=== PATIENT | female | born 1950 | race Caucasian/White ===

== ENCOUNTER 2016-11-16 08:07 | Outpatient (CLI) | payer MEDICARE, BC | END 2016-11-16 08:08 | disposition home or self-care (01) | DX: N20.0 Calculus of kidney (principal); R10.30 Lower abdominal pain, unspecified; R31.9 Hematuria, unspecified; Z87.442 Personal history of urinary calculi ==

== ENCOUNTER 2017-03-27 07:39 | Outpatient (CLI) | payer MEDICARE, BC ==
--- NOTE | 2017-03-27 16:26 | CT Report ---
EXAM: CT ABDOMEN AND PELVIS (CT KUB) EXAM DATE: 03/27/2017 08:03 AM. CLINICAL HISTORY: Renal stone follow-up. COMPARISONS: 11/16/2016. TECHNIQUE: Routine axial helical CT imaging was performed through the abdomen and pelvis without IV c ontrast. Reconstructions: Coronal and sagittal. In accordance with CT protocol optimization, one or more of the following dose reduction techniques w ere utilized for this exam: automated exposure control, adjustment of mA and/or KV based on patient s ize, or use of iterative reconstructive technique. FINDINGS: Lung Bases: Unremarkable. Right Kidney/Ureter: The 4 mm right lower pole intrarenal stone is no longer identified in that locat ion. There the stone appears to have descended into the distal right ureter stent present approximate ly 1 cm from the UVJ best seen on image 117. There is a tiny barely visualized intrarenal stone measu ring 1 mm in the right mid to upper pole as seen on image 49, slightly increased in visibility compar ed to last exam. No hydroureter or hydronephrosis. No perinephric edema. Left Kidney/Ureter: No stones, hydronephrosis, or hydroureter. No perinephric fat stranding. Other Solid Organs: A hypodense focus in the inferior right hepatic lobe measures 10 mm as before. Th e spleen, pancreas and adrenal glands are unremarkable. Gallbladder/Bile Ducts: Unremarkable. Peritoneal Cavity: Surgical material is present about the cecum as before suggesting prior appendecto my. The appendix is not visualized. No bowel obstruction or acute inflammatory process. Hernia repair mesh is intact in the subumbilical location. No free fluid or adenopathy. Pelvic Organs: The bladder is decompressed. The uterus, adnexal regions and rectum are unremarkable. Vasculature: Unremarkable. Other: None. IMPRESSION: 1. Interval descent of a 4 mm right lower pole stone into distal ureter just proximal to the right UV J but causing no hydroureter or hydronephrosis. 2. Slight interval enlargement of 1 mm right mid to upper pole intrarenal stone. [facility] Referring Provider Line: [phone] SITE ID: [id number]
== END 2017-03-27 07:40 | disposition home or self-care (01) ==
LOC: DI 07:39
PROVIDERS: ATTEND Student in an Organized Health Care Education/Training Program
DX: N20.0 Calculus of kidney (principal)
CPT/HCPCS: 74176

== ENCOUNTER 2017-03-28 22:52 | Emergency (ER) | payer MEDICARE, BC ==
[2017-03-28 23:22] LABS: BILIRUBIN,URINE NEGATIVE (NEGATIVE)
[2017-03-28 23:23] LABS: UA w/ MICROSCOPIC CHARGE YES
[2017-03-28 23:31] LABS: UR CULTURE IF IND NOT INDICATED; WBC,URINE 0-3 /HPF (0-5)
[2017-03-29] MEDS ORDERED: SODIUM CHLORIDE 0.9% 1,000 ML IV ONE (00:41)
[2017-03-29] MEDS ORDERED: HYDROmorphone 1 MG/ML SYRINGE IVP STA (00:41)
[2017-03-29] MEDS ORDERED: ONDANSETRON 4 MG/2 ML VIAL IVP STA (00:41)
[2017-03-29] MEDS ORDERED: HYDROmorphone 1 MG/ML SYRINGE ONE (00:43)
[2017-03-29] MEDS ORDERED: ONDANSETRON 4 MG/2 ML VIAL ONE (00:44)
--- NOTE | 2017-03-29 02:20 | ED Physician Documentation ---
PD HPI ABD PAIN - Stated complaint Stated Complaint: BLADDER PRESSURE,RT FLANK PAIN - Chief complaint Chief Complaint: Abd Pain - History obtained from History obtained from: Patient - History of Present Illness Timing - onset: How many days ago (16) Timing - details: Still present Quality: Sharp Location: Other (right flank) Associated symptoms: No: Fever, Vomiting Similar symptoms before: Diagnosis (History of similar symptoms with kidney stones.) Recently seen: Other (She underwent CT abdomen and pelvis yesterday.) - Additional information Additional information: The patient is a 67-year-old female who has history of kidney stones, who presents with right flank pain radiating to the right groin, and associated "bladder pressure." Her symptoms started 16 days ago, and she presents now because of increased pain. She underwent a CT KUB yesterday, and review of the radiologist's report reveals a 4 mm right distal ureteral stone, which on previous CT scan had been in the right renal pelvis. The patient denies fever or vomiting today. She denies dysuria. Review of Systems Constitutional: denies: Fever Nose: denies: Congestion Cardiac: denies: Chest pain / pressure Respiratory: denies: Dyspnea GI: reports: Abdominal Pain, Nausea. 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 - Present Medications Home Medications: Ambulatory Orders Medication Instructions Recorded Confirmed metFORMIN [Glucophage] 850 mg PO BID 04/23/14 03/28/17 Simvastatin 20 mg PO DAILY 03/28/17 03/28/17 oxyCODONE/ACET 5/325 [Percocet 5 1 each PO PRN PRN 03/28/17 03/28/17 mg/325 mg] Promethazine [Phenergan] 25 - 50 mg PO Q6H PRN #10 tab 03/29/17 - Allergies Allergies/Adverse Reactions: Allergies Allergy/AdvReac Type Severity Reaction Status Date / Time No Known Drug Allergies Allergy Verified 04/23/14 18:54 - Social History Does the pt smoke?: No Smoking Status: Never smoker Does the pt drink ETOH?: No Does the pt have substance abuse?: No PD ED PE NORMAL - Vitals Vital signs reviewed: Yes (hypertensive) - General General: Alert and oriented X 3, Well developed/nourished - HEENT HEENT: Atraumatic, Pharynx benign - Neck Neck: No adenopathy, No JVD - Cardiac Cardiac: RRR, No murmur - Respiratory Respiratory: No respiratory distress, Clear bilaterally - Abdomen Abdomen: Soft, Non tender - Back Back: Other (Right CVA tenderness to percussion.) - Derm Derm: No rash - Extremities Extremities: No edema, No calf tenderness / cord - Neuro Neuro: Alert and oriented X 3, No motor deficit, Normal speech Results - Vitals Vitals: Oxygen O2 Source Room air - Labs Labs: Laboratory Tests 03/28/17 23:15 Urine Color YELLOW Urine Clarity CLEAR Urine pH 6.0 Ur Specific Bard 1.025 Urine Protein NEGATIVE Urine Glucose (UA) NEGATIVE Urine Ketones TRACE Urine Occult Blood LARGE H Urine Nitrite NEGATIVE Urine Bilirubin NEGATIVE Urine Urobilinogen 0.2 (NORMAL) Ur Leukocyte Esterase NEGATIVE Urine RBC TNTC H Urine WBC 0-3 Ur Squamous Epith Cells RARE Squamous Urine Bacteria None Seen Urine Mucus Few Strands Ur Microscopic Review INDICATED Urine Culture Comments NOT INDICATED PD MEDICAL DECISION MAKING - ED course Complexity details: reviewed old records, reviewed results, re-evaluated patient , considered differential, d/w patient, d/w family ED course: The patient's presentation is most consistent with right distal ureteral stone with renal colic. Urinalysis reveals red blood cells too numerous to count, but no evidence of urinary infection. Treatment in the emergency department included administration of normal saline 1 L IV, hydromorphone 1 mg IV, and ondansetron 4 mg IV. Her symptoms resolved with the above treatment. She is being discharged with prescriptions for Phenergan and for Percocet, 20 tablets. I discussed with her and her the diagnosis, symptomatic treatment and outpatient follow-up, as well as potentially worrisome signs or symptoms that should prompt reevaluation in the emergency department. Departure - Departure Disposition: 01 Home, Self Care Clinical Impression: Renal colic on right side, Ureteral stone Condition: Stable Instructions: ED Stone Renal W Colic Follow-Up: Ron Reese MD [Provider Admit Priv/Credential] - Prescriptions: Promethazine [Phenergan] 25 - 50 mg PO Q6H PRN #10 tab PRN Reason: Nausea / Vomiting Comments: Plenty of fluids. You can use ibuprofen, up to 800 mg 3 times daily. You can use Percocet as previously prescribed if needed for pain. You can use Phenergan as prescribed if needed for nausea. Follow up with your urologist this week as planned. Return to the emergency department if you develop increasing pain, fever, persistent vomiting, or otherwise worsening symptoms. Discharge Date/Time: 03/29/17 02:36
[2017-03-29 02:38] VITALS: BP 135/66
== END 2017-03-29 02:36 | disposition home or self-care (01) ==
LOC: ED 22:52
DX: N20.1 Calculus of ureter (principal)
CPT/HCPCS: 81001; 96361; 96374; 96375; 99283; 99284; J1170; 81003; 87086

== ENCOUNTER 2017-05-28 08:27 | Outpatient (CLI) | payer MEDICARE, BC ==
[2017-05-28 08:59] LABS: ALBUMIN/GLOBULIN RATIO 1.1 (1.0-2.2); BILIRUBIN,TOTAL 0.5 mg/dL (0.2-1.0); CALCIUM 9.2 mg/dL (8.5-10.3); CREATININE 0.7 mg/dL (0.4-1.0); POTASSIUM 4.1 mmol/L (3.5-5.0); TOTAL PROTEIN 7.2 g/dL (6.7-8.2); URIC ACID 4.2 mg/dL (2.6-7.2)
== END 2017-05-28 08:28 | disposition home or self-care (01) ==
LOC: LAB 08:27
PROVIDERS: ATTEND Student in an Organized Health Care Education/Training Program
DX: N20.0 Calculus of kidney (principal)
CPT/HCPCS: 36415; 80053; 83970; 84550

== ENCOUNTER 2017-07-26 10:35 | Outpatient (CLI) | payer MEDICARE, BC ==
--- NOTE | 2017-07-28 12:11 | XRAY Report ---
TWO-VIEW CHEST: 07/26/2017 COMPARISON: Chest 04/09/2014. TECHNIQUE: Two views of the chest. FINDINGS: Normal volumes. No focal pulmonary abnormality. No pneumothorax or pleural effusion. Me diastinum appears unremarkable. IMPRESSION: NEGATIVE CHEST. JOB #: [id number] EXT JOB #:[id number]
== END 2017-07-26 10:36 | disposition home or self-care (01) ==
LOC: DI 10:35
PROVIDERS: ATTEND Internal Medicine
DX: R06.00 Dyspnea, unspecified (principal); R05 Cough
CPT/HCPCS: 71020

== ENCOUNTER 2018-05-31 09:30 | Outpatient (CLI) | payer MEDICARE, BC ==
[2018-05-31 10:34] LABS: BASOPHILS # (AUTO) 0.1 10^3/uL (0.0-0.1); BASOPHILS % (AUTO) 0.8 %; EOSINOPHILS # (AUTO) 0.2 10^3/uL (0.0-0.7); EOSINOPHILS % (AUTO) 2.4 %; HGB - HEMOGLOBIN 13.2 g/dL (12.0-16.0); LYMPHOCYTES # (AUTO) 3.1 10^3/uL (1.5-3.5); LYMPHOCYTES % (AUTO) 39.3 %; MEAN CORPUSCULAR HEMOGLOBIN 29.5 pg (27.0-31.0); MEAN CORPUSCULAR HGB CONC 33.8 g/dL (32.0-36.0); MEAN CORPUSCULAR VOLUME 87.4 fL (81.0-99.0); MEAN PLATELET VOLUME 7.5 fL (7.9-10.8); MONOCYTES # (AUTO) 0.6 10^3/uL (0.0-1.0); MONOCYTES % (AUTO) 7.8 %; NEUTROPHILS % (AUTO) 49.7 %; PLT - PLATELET COUNT 308 10^3/uL (130-450); RED BLOOD COUNT 4.48 10^6/uL (4.20-5.40); RED CELL DISTRIBUTION WIDTH 14.9 % (12.0-15.0); WHITE BLOOD COUNT 7.9 x10^3/uL (4.8-10.8)
[2018-05-31 11:08] LABS: HB2 TOTAL 14.1 g/dL; HEMOGLOBIN A1C 0.59 g/dL
[2018-05-31 11:21] LABS: ALBUMIN 3.9 g/dL (3.2-5.5); ALBUMIN/GLOBULIN RATIO 1.2 (1.0-2.2); CALCIUM 9.4 mg/dL (8.5-10.3); CREATININE 0.6 mg/dL (0.4-1.0); TOTAL PROTEIN 7.1 g/dL (6.7-8.2)
== END 2018-05-31 09:31 | disposition home or self-care (01) ==
LOC: LAB 09:30
PROVIDERS: ATTEND Family Medicine
DX: Z00.00 Encounter for general adult medical examination without abnormal findings (principal); E78.5 Hyperlipidemia, unspecified; R73.01 Impaired fasting glucose; E66.9 Obesity, unspecified
CPT/HCPCS: 36415; 80053; 83036; 85025

== ENCOUNTER 2018-06-17 10:05 | Outpatient (CLI) | payer MEDICARE, BC ==
--- NOTE | 2018-06-20 14:53 | Mammography Report ---
Reason: SCREENING MAMMO Procedure Date: 06/17/2018 Accession Number: [id number] / [id number] Procedure: DRE - Screening Mammo Dig Bilat CPT Code: FULL RESULT: EXAM: Screening Mammo Dig Bilat DATE: 06/17/2018 10:52 AM CLINICAL HISTORY: 68-year-old female with family history of breast cancer in an aunt at age 60 and a cousin at age 52. TECHNIQUE: Bilateral CC and MLO views were obtained. COMPARISON: 09/15/2016, 05/28/2014, 05/01/2013, 11/13/2011. FINDINGS: The breasts demonstrate scattered fibroglandular densities bilaterally. Coarse typically benign calcifications are seen bilaterally. Typically benign vascular calcifications are seen on the right. No suspicious masses, clustered microcalcifications, or regions of architectural distortion are identified. IMPRESSION: Benign findings RECOMMENDATION: Routine annual screening unless otherwise clinically indicated. BIRADS CATEGORY 2: Benign findings STANDARD QUALIFYING STATEMENTS: 1. This examination was reviewed without the aid of Computer-Aided Detection (CAD). 2. A negative or benign imaging report should not delay biopsy if clinically suspicious findings are present. Consider surgical consultation if warrented. More than 5% of cancers are not identified by imaging. 3. Dense breasts may obscure an underlying neoplasm.
== END 2018-06-17 10:06 | disposition home or self-care (01) ==
LOC: DI 10:05
PROVIDERS: ATTEND Internal Medicine
DX: Z12.31 Encounter for screening mammogram for malignant neoplasm of breast (principal); Z80.3 Family history of malignant neoplasm of breast
CPT/HCPCS: 77067

== ENCOUNTER 2018-07-11 09:06 | Outpatient (CLI) | payer MEDICARE, BC ==
--- NOTE | 2018-07-12 09:02 | DEXA Report ---
Reason: OSTEOPOROSIS,MENOPAUSAL PERIMENOPAUSAL DISORD Procedure Date: 07/11/2018 Accession Number: [id number] / [id number] Procedure: DEX - Dexa Spine and/or Hip CPT Code: FULL RESULT: EXAM: Dexa Spine and/or Hip DATE: 07/11/2018 10:50 AM CLINICAL HISTORY: OSTEOPOROSIS,MENOPAUSAL PERIMENOPAUSAL DISORD TECHNIQUE: Dual energy x-ray absorptiometry (DXA) was performed on a [employer] System. Regions measured are the AP Spine, femoral neck, and if needed forearm. COMPARISON: None. In accordance with the International Society for Clinical Densitometry (ISCD) guidelines, data from previous exams may be reanalyzed using current recommendations and techniques. This is done to allow a more accurate basis for comparison with the current study. FINDINGS: The data for the lumbar spine is as follows: BMD (g/cm/cm) T-SCORE Z-SCORE REGION L1 0.872 -2.1 -1.6 L2 0.854 -2.9 -2.3 L3 0.787 -3.4 -2.9 L4 0.753 -3.7 -3.1 TOTAL 0.809 -3.1 -2.5 NOTE: All evaluable vertebrae are used for classification The data for the hip is as follows: BMD (g/cm/cm) T-SCORE Z-SCORE REGION Neck 0.751 -2.1 -1.2 TOTAL 0.787 -1.8 -1.2 IMPRESSION: THE WHO CLASSIFICATION BASED ON THE INTERNATIONAL REFERENCE STANDARD IS OSTEOPOROSIS. THE FRACTURE RISK IS HIGH. RECOMMENDATION: Patients with diagnosis of osteoporosis or osteopenia should have regular bone mineral density assessment. For those eligible for Medicare, routine testing is allowed once every 2 years. Testing frequency can be increased for patients who have rapidly progressing disease or for those who are receiving medical therapy to restore bone mass. COMMENT: World Health Organization (WHO) definitions for osteoporosis and osteopenia: NORMAL BMD: T-score at -1.0 or higher, fracture risk is low OSTEOPENIA BMD: T-score between -1.0 and -2.5, fracture risk is increased. OSTEOPOROSIS BMD: T-score at -2.5 or lower, fracture risk is high. National Osteoporosis Foundation recommends: 1. Obtain adequate dietary calcium (at least 1200 mg per day) and vitamin D (400-800 international units per day). 2. Participate, as appropriate, in regular weightbearing and muscle-strengthening exercise. 3. Avoid tobacco use and reduce alcohol and caffeine intake. 4. For more detailed information see the website at www.NOF.org.
== END 2018-07-11 09:07 | disposition home or self-care (01) ==
LOC: DI 09:06
PROVIDERS: ATTEND Physician Assistant
DX: M81.0 Age-related osteoporosis without current pathological fracture (principal)
CPT/HCPCS: 77080

== ENCOUNTER 2018-07-11 09:06 | Outpatient (CLI) | payer MEDICARE, BC ==
--- NOTE | 2018-07-11 10:35 | Ultrasound Report ---
Reason: RECURRENT INCISIONAL HERNIA-PRIOR REPAIR W/MESH Procedure Date: 07/11/2018 Accession Number: [id number] / [id number] Procedure: US - Abdomen Limited CPT Code: FULL RESULT: EXAM: ABDOMEN ULTRASOUND LIMITED, RUQ EXAM DATE: 07/11/2018 10:01 AM. CLINICAL HISTORY: Recurrent incisional hernia-prior repair with mesh. COMPARISON: Abdomen/pelvis without 03/27/2017 8:00 AM. TECHNIQUE: Real-time scanning was performed with static images obtained. FINDINGS: Focused ultrasound examination of the previously repaired infraumbilical midline hernia was performed. As demonstrated on the 2017 CT, there is wide midline diastases of the abdominal wall, better measured on the previous CT which exceeds the size of the hernia repair mesh. The configuration appears unchanged from 2017. IMPRESSION: Abdominal wall diastasis at site of previous hernia repair, now ineffectual and unchanged compared to 2017. [facility]
== END 2018-07-11 09:07 | disposition home or self-care (01) ==
LOC: DI 09:06
PROVIDERS: ATTEND Physician Assistant
DX: M81.0 Age-related osteoporosis without current pathological fracture (principal); Z98.890 Other specified postprocedural states
CPT/HCPCS: 76705; 77080

== ENCOUNTER 2018-09-08 11:05 | Outpatient (CLI) | payer MEDICARE, BC | END 2018-09-08 11:06 | disposition home or self-care (01) | LOC: LAB 11:05 | PROVIDERS: ATTEND Physician Assistant | DX: M81.8 Other osteoporosis without current pathological fracture (principal) | CPT/HCPCS: 36415; 82306 ==

== ENCOUNTER 2019-05-18 09:10 | Outpatient (CLI) | payer MEDICARE, BC ==
[2019-05-18 10:07] LABS: ALBUMIN 3.6 g/dL (3.2-5.5); ALBUMIN/GLOBULIN RATIO 1.1 (1.0-2.2); ALKALINE PHOSPHATASE 59 IU/L (42-121); ALT ALANINE AMINOTRANSFERASE 17 IU/L (10-60); AST ASPARTATE AMINOTRANSFERASE 17 IU/L (10-42); BILIRUBIN,TOTAL 0.4 mg/dL (0.2-1.0); BUN - BLOOD UREA NITROGEN 14 mg/dL (6-20); CALCIUM 9.3 mg/dL (8.5-10.3); CARBON DIOXIDE - CO2 25 mmol/L (21-32); CHLORIDE 107 mmol/L (101-111); CHOL/HDL RATIO 2.9 (<4.4); CHOLESTEROL 144 mg/dL; CREATININE 0.8 mg/dL (0.4-1.0); GFR - MDRD 71 (>89); GLUCOSE 103 mg/dL (70-100); HDL CHOLESTEROL 50 mg/dL; LDL CHOLESTEROL,CALCULATED 74 mg/dL; LDL/HDL RATIO 1.5 (<4.4); SODIUM 143 mmol/L (135-145); VLDL CHOLESTEROL 20 mg/dL
[2019-05-18 10:08] LABS: HB2 TOTAL 13.3 g/dL; HEMOGLOBIN A1C 0.57 g/dL; HEMOGLOBIN A1C % 6.1 % (4.6-6.2)
== END 2019-05-18 09:11 | disposition home or self-care (01) ==
LOC: LAB 09:10
PROVIDERS: ATTEND Internal Medicine
DX: E11.9 Type 2 diabetes mellitus without complications (principal); E78.5 Hyperlipidemia, unspecified
CPT/HCPCS: 36415; 80053; 80061; 83036; 83721

== ENCOUNTER 2020-08-10 16:59 | Emergency (ER) | payer MEDICARE, BC ==
--- NOTE | 2020-08-10 17:30 | ED Physician Documentation ---
PD HPI LOWER EXT INJURY - Stated complaint Stated Complaint: RT KNEE/PX - Chief complaint Chief Complaint: Ext Problem - History obtained from History obtained from: Patient, Family - Additional information Additional information: About 15 years ago she has a history of some knee problems with locking. She had ended up having arthroscopic surgery and had some articular loose bodies and a meniscus that were cleaned out. Over the last 48 hours or so the right knee feels locked with significant pain especially internally when she tries to walk. Not too bad at rest. She does have chronic lymphedema in that leg. No recent injury. 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 - Present Medications Home Medications: Ambulatory Orders Medication Instructions Recorded Confirmed metFORMIN [Glucophage] 850 mg PO BID 04/23/14 03/28/17 Simvastatin 20 mg PO DAILY 03/28/17 03/28/17 oxyCODONE/ACET 5/325 [Percocet 5 1 each PO PRN PRN 03/28/17 03/28/17 mg/325 mg] Promethazine [Phenergan] 25 - 50 mg PO Q6H PRN #10 tab 03/29/17 HYDROcod/ACETAM 5/325 [[place] 5/325] 1 - 2 tab PO Q6H PRN #15 tablet 08/10/20 - Allergies Allergies/Adverse Reactions: Allergies Allergy/AdvReac Type Severity Reaction Status Date / Time No Known Drug Allergies Allergy Verified 08/10/20 17:11 - Social History Does the pt smoke?: No Smoking Status: Never smoker Does the pt drink ETOH?: No Does the pt have substance abuse?: No PD ED PE NORMAL - Vitals Vital signs reviewed: Yes (She is noted to be tachycardic which she says is due to the pain but declin) - General General: Alert and oriented X 3, No acute distress - Extremities Extremities: Other (Hard to say if there is an effusion as she has a fairly large leg. There may be a small 1. She is tender posteriorly. There is no deformity. Ligamentous testing is without tenderness. Negative grind testing. No tenderness over the IT band or pain with IT band stretching.) - Neuro Neuro: Alert and oriented X 3, Normal speech Results - Vitals Vitals: Vital Signs - 24 hr 08/10/20 08/10/20 08/10/20 17:04 17:22 18:07 Temperature 36.5 C 37.3 C 37.4 C Heart Rate 125 H 129 H 110 H Respiratory 17 20 18 Rate Blood Pressure 167/117 H 167/117 H 174/117 H O2 Saturation 99 99 97 Oxygen O2 Source Room air - Rads (name of study) R knee XR Radiology: EMP read contemporaneously PD MEDICAL DECISION MAKING - ED course ED course: 70-year-old woman with knee locking and knee pain. X-rays without acute findings. Could be intra-articular loose body or meniscus injury or just plain osteoarthritis. Feeling better in a knee immobilizer. DVT considered but the history is very antithetical to that. Departure - Departure Disposition: 01 Home, Self Care Clinical Impression: Osteoarthritis of knee, unspecified Condition: Good Record reviewed to determine appropriate education?: Yes Instructions: ED Knee Pain [facility] Follow-Up: [facility] [Provider Group] Prescriptions: HYDROcod/ACETAM 5/325 [[place] 5/325] 1 - 2 tab PO Q6H PRN #15 tablet PRN Reason: Pain Comments: Wear the splint as needed for comfort. Return as needed for new or worsening symptoms. Follow-up with the orthopedist, call on Wednesday for an appointment.
[2020-08-10] MEDS ORDERED: HYDROcod/ACET 5/325 Prepack 4 PO STA (17:45)
--- NOTE | 2020-08-10 18:07 | XRAY Report ---
PROCEDURE: Knee 4 View RT INDICATIONS: knee pain TECHNIQUE: 4 views of the right knee(s) were acquired. COMPARISON: None. FINDINGS: Bones: No fractures or dislocations. There is moderate medial femorotibial compartment narrowing an d small tricompartmental osteophytes. No suspicious bony lesions. Soft tissues: No joint effusion. No suspicious soft tissue calcifications. IMPRESSION: Moderate knee osteoarthritis. No acute radiographic findings. If pain persists, cross-se ctional imaging with CT or MRI could be used. Reviewed by: Alena Rondon MD on 08/10/2020 6:06 PM [facility] Approved by: Alena Rondon MD on 08/10/2020 6:06 PM [facility] Station ID: [id number]
[2020-08-10 18:08] VITALS: BP 174/117
== END 2020-08-10 18:38 | disposition home or self-care (01) ==
LOC: ED 16:59
DX: M17.11 Unilateral primary osteoarthritis, right knee (principal); I89.0 Lymphedema, not elsewhere classified
CPT/HCPCS: 99283

== ENCOUNTER 2020-10-28 10:12 | Outpatient (CLI) | payer MEDICARE, BC ==
--- NOTE | 2020-10-29 09:45 | Mammography Report ---
BILATERAL DIGITAL SCREENING MAMMOGRAM 3D/2D: 10/28/2020 CLINICAL: Routine screening. Comparison is made to exams dated: 06/17/2018 mammogram, 09/15/2016 mammogram, 05/28/2014 mammogram, mammogram, 11/13/2011 mammogram, and 04/16/2011 mammogram - [facility]. The tissue of both breasts is heterogeneously dense. This may lower the sensitivity of mammography. No significant masses, calcifications, or other findings are seen in either breast. There has been no significant interval change. IMPRESSION: NEGATIVE There is no mammographic evidence of malignancy. A 1 year screening mammogram is recommended. This exam was interpreted at Station ID: [id number]. NOTE: For mammograms, a report in lay terms will be sent to the patient. Approximately 15% of breast malignancies will not be visualized mammographically. In the management of a palpable breast mass, a negative mammogram must not discourage biopsy of a clinically suspicious lesion. Electronically Signed By: Wesley Coy M.D. at/radharad:10/28/2020 11:25:17 ACR BI-RADS Category 1: Negative 3341F PARENCHYMAL PATTERN: (D) - The breast(s) demonstrate(s) heterogeneously dense fibroglandular radha varma. BI-RADS CATEGORY: (1) - 1 RECOMMENDATION: (ANNUAL) - Recommend routine annual screening mammography. [id number] 1 year screening LATERALITY: (B)
== END 2020-10-28 10:13 | disposition home or self-care (01) ==
LOC: DI.N 10:12
PROVIDERS: ATTEND Internal Medicine
DX: Z12.31 Encounter for screening mammogram for malignant neoplasm of breast (principal)

== ENCOUNTER 2020-12-26 06:24 | Day surgery (SDC) | payer MEDICARE, BC ==
[2020-12-26] MEDS ORDERED: LACTATED RINGERS 1,000 ML IV ONE (06:38)
[2020-12-26] MEDS ORDERED: MIDAZOLAM 2 MG/2 ML VIAL ONE ×2 (08:04→08:11)
[2020-12-26] MEDS ORDERED: fentaNYL 250 MCG/5 ML VIAL ONE (08:04)
[2020-12-26] MEDS ORDERED: LACTATED RINGERS 900 ML IV ONE (08:21)
[2020-12-26 08:43] VITALS: BP 131/89
== END 2020-12-26 06:25 | disposition home or self-care (01) ==
LOC: SDS 06:24
PROVIDERS: ATTEND Surgery
DX: Z12.11 Encounter for screening for malignant neoplasm of colon (principal); K64.8 Other hemorrhoids; K57.30 Diverticulosis of large intestine without perforation or abscess without bleeding; R03.0 Elevated blood-pressure reading, without diagnosis of hypertension; E11.9 Type 2 diabetes mellitus without complications; Z79.84 Long term (current) use of oral hypoglycemic drugs; E66.9 Obesity, unspecified; Z68.36 Body mass index [BMI] 36.0-36.9, adult
CPT/HCPCS: G0121; J3010; J7120

== ENCOUNTER 2021-11-18 10:34 | Outpatient (CLI) | payer MEDICARE, BC ==
--- NOTE | 2021-11-18 16:43 | DEXA Report ---
PROCEDURE: Dexa Spine and/or Hip INDICATIONS: MENOPAUSAL TECHNIQUE: Dual energy x-ray absorptiometry (DXA) was performed on a [employer] System. Regions measur ed are the AP Spine, femoral neck, and if needed forearm. COMPARISON: None. FINDINGS: Lumbar Spine: Bone Mineral Density 0.4 g/cm/cm,T score -2.8, osteoporosis Left Hip: Bone Mineral Density 0.81 g/cm/cm,T score -1.5, osteopenia Impression: 1. Lumbar spine osteoporosis. 2. Left hip osteopenia. Patients with diagnosis of osteoporosis or osteopenia should have regular bone mineral density assess ment. For those eligible for Medicare, routine testing is allowed once every 2 years. Testing frequ ency can be increased for patients who have rapidly progressing disease or for those who are receivin g medical therapy to restore bone mass. Reviewed by: Felipe Thakkar MD on 11/18/2021 4:42 PM PST Approved by: Felipe Thakkar MD on 11/18/2021 4:42 PM PST Station ID: [id number]
== END 2021-11-18 10:35 | disposition home or self-care (01) ==
LOC: DI 10:34
PROVIDERS: ATTEND Physician Assistant
DX: Z13.820 Encounter for screening for osteoporosis (principal); N95.8 Other specified menopausal and perimenopausal disorders; M81.0 Age-related osteoporosis without current pathological fracture; M85.88 Other specified disorders of bone density and structure, other site

== ENCOUNTER 2022-09-10 10:44 | Outpatient (CLI) | payer MEDICARE, BC ==
--- NOTE | 2022-09-10 11:34 | SLEEP CARE CONSULTATION ---
Information from patient questionnaire entered by Ricky Solis. I have reviewed and concur with the information entered by Ricky Solis. This document represents the service I personally performed and the decisions made by me, Tabatha Yates ARNP. History of Present Illness Service Date and Time: 09/10/2022 1044 Reason for Visit: New patient Chief Complaint: reports: Insomnia, Snoring, Frequent awakenings at night, Other (headaches in morning) Date of Onset: 1 YEAR Usual bedtime: 1030PM Time it takes to fall asleep: VARIES; sometimes right away, occ 1 hr, mind will not shut off sometimes Snores at night: Yes Observed to quit breathing while asleep: No Sleeps alone due to snoring: No Number of times waking at night: 2-3 Reasons for waking at night: reports: Bathroom, Other (UNKNOWN REASON ). denies: Choking, Gasping for air Toss, Turn, or Twitch while sleeping: Yes Recalls having dreams: Yes Usually gets out of bed at: 9AM Feels refreshed in the morning: Yes Morning headache: Yes (cycles from 3-4 days in row to none; USUALLY GOES AWAY WHEN UPRIGHT ) Sleepy or fatigued during the day: Yes Ever fallen asleep while driving: No Takes day naps: Yes (almost daily if sitting quietly; 30 mins) Dreams during day naps: No Prior sleep studies: No Additional HPI information: I had the pleasure of seeing BEAU GONZALEZ today regarding the possibility of her having a sleep disorder. Her current complaints are insomnia, snoring and frequent night awakenings. She saw her PCP who referred her here for evaluation. She states that she has white coat and her blood pressure is always high in the office. 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 Patient is and lives in [place]. Have you smoked in the past 12 months: No Alcohol use: No Caffeine use: Yes Caffeine amount and frequency: 1 CUP DAILY Family History Family history of sleep disordered breathing: Yes Family Hx Sleep Apnea: Father: Snoring Allergies and Home Medications Known drug allergies: No Drug allergies reviewed: Yes (NKDA) Home medication list reviewed: Yes Allergy and home medication list: Medications: Metformin 850 mg 2 times a day Simvastatin 20 mg daily Ibandronate 150 mg monthly Lexapro 20 mg daily Allertec 10 mg daily Calicum 600 mg + Vit D 500 mg 2 times a day Review of Systems Cardiovascular: denies: high blood pressure (does have high readings in doctor's offices) Urinary: reports: incontinence (STRESS) Neurological: reports: headaches (SOMETIMES IN THE AM ) Psychiatric: reports: depression Ear/Nose/Throat: reports: wisdom teeth removed. denies: tonsillectomy Immunologic: reports: allergies to food or environment (MILD) Physical Exam Vital signs obtained and entered by: JM GRAJEDA Blood Pressure: 160/100 (left forearm ; pt states she has white coat; normal bp at home) Cuff size: wrist Heart Rate: 80 O2 Saturation: 97 Height: 5 ft 3 in Weight: 213 lb Body Mass Index: 37.7 BMI Classification: Obese Neck circumference: 16 (inches ) Mouth and throat: narrow oropharynx Soft palate: long Hard palate: normal Uvula: edematous Uvula visualization: 25% Mallampati Class III Tongue: enlarged in size with teeth reynolds on lateral edges Tonsils: 1+ Neck: normal w/o lymphadenopathy or thyromegaly Heart: regular rate and rhythm Lungs: clear bilaterally Impression and Plan 1. Suspected Obstructive Sleep Apnea-Hypopnea Syndrome, as suggested by a history of loud and irregular snoring, morning headache and frequent awakening during the night. Narrow oropharynx and obesity are common predisposing factors for obstructive sleep apnea-hypopnea syndrome. I recommend proceeding to polysomnography to confirm the diagnosis and to assess severity. If the patient has significant sleep disordered breathing, a manual CPAP titration study will also be performed to find the optimal treatment pressure. I informed the patient of what the sleep studies involve and after some discussion, obtained agreement to proceed. Patient does think that she may have difficulty falling asleep in the sleep lab for the study. I offered a one time dose of Zolpidem 5 mg for night of study. She has not tried this before but was willing to take for the study. I advised her that she will need to fill prescription and bring medication to sleep lab the night of the study. The pathophysiology of obstructive sleep apnea-hypopnea syndrome was discussed with the patient and health risks of cardiovascular and cerebrovascular disease if not treated. Risks of drowsy driving discussed in detail and patient advised to avoid long distance driving and to chute puller at the first sign of drowsiness. Patient agreed to plan. 2. Elevated blood pressure reading in office. Patient states she has white coat hypertension. Her blood pressure today was 160/100. Patient denied chest pain, shortness of breath, dizziness or headaches. She does monitor her blood pressure at home and it is always in a normal range. She will follow up as needed with her PCP. * Schedule polysomnography * Zolpidem 5 mg for night of sleep study for PSG * Avoid long distance driving or driving when feeling sleepy. * Avoid alcohol, sedative and muscle relaxant around bedtime. * Attempt to lose weight. * Review instructions provided by trained office staff on how to prepare for the sleep study. * Return for follow-up after sleep study completed. Counseling Topics: Weight loss health impact Visit Type: In Office Time Spent with Patient (minutes): 35 Provider Statement: I spent 100% of the Face to Face Visit with the patient with greater than 50% spent counseling the patient and coordination of care.
[2022-09-10 11:39] VITALS: BP 160/100
== END 2022-09-10 10:45 | disposition home or self-care (01) ==
LOC: SC 10:44
PROVIDERS: ATTEND Nurse Practitioner Family
DX: G47.8 Other sleep disorders (principal); R51.9 Headache, unspecified; R06.83 Snoring; E11.9 Type 2 diabetes mellitus without complications; F32.A Depression, unspecified; R03.0 Elevated blood-pressure reading, without diagnosis of hypertension; Z79.84 Long term (current) use of oral hypoglycemic drugs; E66.9 Obesity, unspecified; Z68.37 Body mass index [BMI] 37.0-37.9, adult
CPT/HCPCS: 99203; G0463; 99212

== ENCOUNTER 2022-10-14 20:36 | Outpatient (CLI) | payer MEDICARE, BC | END 2022-10-14 20:37 | disposition home or self-care (01) | LOC: SC 20:36 | PROVIDERS: ATTEND Nurse Practitioner Family | DX: G47.33 Obstructive sleep apnea (adult) (pediatric) (principal); G47.61 Periodic limb movement disorder | CPT/HCPCS: 95810 ==

== ENCOUNTER 2022-10-30 15:44 | Outpatient (CLI) | payer MEDICARE, BC ==
--- NOTE | 2022-10-30 16:19 | SLEEP CARE CONSULTATION ---
Information from patient questionnaire entered by Glenda Shen. I have reviewed and concur with the information entered by Glenda Shen. This document represents the service I personally performed and the decisions made by , Tabatha Yates ARNP. History of Present Illness Service Date and Time: 10/30/2022 1544 Initial [place] Sleepiness Scale score: 11 (08/14/22) Current [place] Sleepiness Scale score: 11 (10/30/22) Additional HPI information: BEAU GONZALEZ returns for follow up and results of the recently performed polysomnography. I explained the pathophysiology behind obstructive sleep apnea. We then spent quite a bit of time discussing different treatment options. For mild obstructive sleep apnea, surgery and oral appliance are alternatives to nasal CPAP therapy but in moderate or severe cases, nasal CPAP is the most effective and reliable treatment. Because apnea is primarily in supine position, then positional management therapy could be effective. Methods discussed such as positioning with pillows to prevent supine sleep. I reviewed the impact of weight changes on sleep apnea and strongly recommended losing weight. After some discussion, the patient opted to go with the nasal CPAP therapy. Nasal autoCPAP set at 4-15 cmH20 will be ordered with rationale explained. A manual titration study will be ordered if unable to find optimal pressure with office adjustments. I explained how CPAP machine works and what to expect when using the machine. Using CPAP every night in order to get used to it was emphasized. Patient advised to put CPAP mask on before getting into bed so as not to fall asleep w ithout CPAP. To assist acclimation to CPAP use, it could also be used for a short time during day while reading or watching TV. The patient was instructed to call the CPAP supplier to discuss any mechanical problem that may occur. If the mask given is uncomfortable or is difficult to keep on through the night even with adjustment, contact the CPAP supplier as many will replace with another mask style if notified before 30 days. If snoring or perceives is not getting enough air or too much air from the machine, notify this office. Patient counseled not drink alcohol less than 4 hours before bedtime as it can increase snoring and apnea. Patient was cautioned about risks of drowsy driving until sleepiness symptoms resolve. Patient denies drowsy driving. Sleep Study - Results Type of Sleep Study: Polysomnography (COMPLETED 10/14/22) Prior sleep studies: No Polysomnography/Home Sleep Study results: IMPRESSION: The quality of the study is good. The patient had poor sleep efficiency due to several prolonged awakenings during the night. The sleep architecture was abnormal for sleep fragmentation and lack of REM and slow wave sleep (N3). Respiratory monitoring showed mild obstructive sleep apnea-hypopnea (AHI = 7.9) associated with frequent arousals, oxyhemoglobin desaturation and mild hypoxia ([place]elia oxygen saturation of 88%). The respiratory events occurred predominantly during supine sleep (supine AHI = 17.1; non-supine = 8.07). Snore was light to moderate in intensity. There was severe periodic leg movement of sleep contributing to the sleep fragmentation. Cardiac rhythm was normal sinus rhythm without significant arrhythmia. No abnormal behavior (parasomnia) observed during the night. Allergies and Home Medications Drug allergies reviewed: Yes (NKDA) Home medication list reviewed: Yes (Lexapro started 6 months ago) Review of Systems Review of systems same as previous: Yes (no changs) Physical Exam Vital signs obtained and entered by: GLENDA Lujan MA Blood Pressure: 130/82 (LEFT ARM) Cuff size: regular Heart Rate: 82 O2 Saturation: 98 Height: 5 ft 3 in Weight: 213 lb 12.8 oz Body Mass Index: 37.8 BMI Classification: Obese Impression and Plan 1. Obstructive Sleep Apnea-Hypopnea Syndrome, mild, with lowest oxygen saturation of 88%. Obviously this is the cause of the patients symptoms of unrefreshed sleep, and excessive daytime sleepiness. Positive pressure therapy could benefit pre-diabetes and depression. As mentioned above, the patient will be started on nasal autoCPAP therapy with pressure set at 4-15 cmH2O. Compliance guidelines also reviewed. A copy of compliance guidelines will be given for reference at check out. Because the apnea is more severe supine, I instructed to avoid sleeping supine using pillow positioning until able to start CPAP use. 2. Periodic limb movement, severe, that did contribute to fragmentation of patients sleep. Periodic limb movement of sleep (PLMS) is characterized by episodes of repetitive limb movements that occur during sleep and usually involve the lower limbs. The etiology is unknown. Caffeine can aggravate PLMS and should be avoided. Sleep hygiene methods can also improve sleep as well as lifestyle changes such as regular exercise. Patient was advised that no treatment is needed at this time. If symptoms increase, then further evaluation is indicated. * Nasal auto CPAP therapy, pressure at 4-15 cm H2O. * Attempt to lose weight. * Avoid alcohol consumption near bedtime. * Avoid supine sleep until using CPAP. * The patient is again cautioned about driving until sleepiness completely resolves. * Return one month after CPAP obtained. I will assess response to therapy and compliance at that time. Counseling Topics: Weight loss health impact Visit Type: In Office Time Spent with Patient (minutes): 20 Provider Statement: I spent 100% of the Face to Face Visit with the patient with greater than 50% spent counseling the patient and coordination of care.
[2022-10-30 16:20] VITALS: BP 130/82
== END 2022-10-30 15:45 | disposition home or self-care (01) ==
LOC: SC 15:44
PROVIDERS: ATTEND Nurse Practitioner Family
DX: G47.33 Obstructive sleep apnea (adult) (pediatric) (principal); G47.61 Periodic limb movement disorder; E66.9 Obesity, unspecified; Z68.37 Body mass index [BMI] 37.0-37.9, adult
CPT/HCPCS: 99213; G0463; 99212

== ENCOUNTER 2022-12-25 11:05 | Outpatient (CLI) | payer MEDICARE, BC ==
--- NOTE | 2022-12-28 13:45 | Mammography Report ---
BILATERAL DIGITAL SCREENING MAMMOGRAM 3D/2D: 12/25/2022 CLINICAL: Routine screening. Comparison is made to exams dated: 10/28/2020 mammogram, 06/17/2018 mammogram, 09/15/2016 mammogram, mammogram, and 05/01/2013 mammogram - [facility]. There are scattered areas of fibroglandular density in both breasts (category b / 25%-50% glandular t issue). There are benign vascular calcifications in both breasts. No significant masses, calcifications, or other findings are seen in either breast. There has been no significant interval change. IMPRESSION: BENIGN There is no mammographic evidence of malignancy. A 1 year screening mammogram is recommended. Based on the Tyrer Cuzick model (a risk assessment model) the patients lifetime risk is 6.8% and her 10 year risk is 4.7%. According to the ACR, ACS, and NCCN guidelines, an annual breast MRI exam cj g with mammogram is recommended if the patients lifetime risk is 20% or greater. This exam was interpreted at Station ID: [id number]. NOTE: For mammograms, a report in lay terms will be sent to the patient. Approximately 15% of breast malignancies will not be visualized mammographically. In the management of a palpable breast mass, a negative mammogram must not discourage biopsy of a clinically suspicious lesion. Electronically Signed By: Mainor currie/lizett:12/25/2022 14:36:01 letter sent: No_Letter ACR BI-RADS Category 2: Benign Finding(s) 3342F PARENCHYMAL PATTERN: (A) - The breast(s) demonstrate(s) scattered fibroglandular densities. BI-RADS CATEGORY: (2) - 2 Mammogram [id number] 1 year screening LATERALITY: (B)
== END 2022-12-25 11:06 | disposition home or self-care (01) ==
LOC: DI 11:05
PROVIDERS: ATTEND Physician Assistant
DX: Z12.31 Encounter for screening mammogram for malignant neoplasm of breast (principal)

== ENCOUNTER 2023-01-14 14:01 | Outpatient (CLI) | payer MEDICARE, BC ==
[2023-01-14 14:32] VITALS: BP 150/100
--- NOTE | 2023-01-14 14:32 | SLEEP CARE CONSULTATION ---
Information from patient questionnaire entered by Koby Shen. I have reviewed and concur with the information entered by Koby Shen. This document represents the service I personally performed and the decisions made by me, Tabatha Yates ARNP. History of Present Illness Service Date and Time: 01/14/2023 1401 Previous diagnosis: Mild, Obstructive Sleep Apnea-Hypopnea Syndrome AHI: 7.9 (in 2022) Reason for follow up: first compliance Equipment type: CPAP (RESMED Airsense 11, 11/2022 s/u) Equipment obtained from: [facility] ([employer] supplies) Mask style: Nasal (small cushion) Backup mask available: No (will keep old mask when replaced) Last cushion change: couple weeks Prior sleep studies: No Type of Sleep Study: Polysomnography (COMPLETED 10/14/22) HPI additional information: BEAU GONZALEZ was diagnosed to have mild, AHI 7.9, obstructive sleep apnea- hypopnea syndrome and returned today for CPAP therapy first compliance follow- up. Sleep Study - Results Type of Sleep Study: Polysomnography (COMPLETED 10/14/22) Prior sleep studies: No CPAP Compliance Data - Data Reviewed with Patient Average duration of nightly device use: 6 HRS 12 MINS Compliance rate %: 93 (12/14/22-01/12/23; 29/30 days used) Current pressure setting (cmH2O): 4-15 (median 11.6, avg 13.6, max 14.3) Average residual AHI: 1.3 Central apnea: 0.1 Obstructive apnea: 0.4 Average large leak: 1.4 lpm Subjective Patient concerns: reports: mask leak noise (only when on right side), dry mouth, nose, throat (mouth came open during sleep). denies: aerophagia, mask discomfort, air blowing in eyes, condensation in mask/hose, nasal congestion, epistaxis Observed to snore while using device: No Current pressure setting perceived as: comfortable On therapy, patient: reports: sleeping better, awakening more refreshed, being more awake and alert during the day, more rested overall. denies: drowsiness while driving Initial [place] Sleepiness Scale score: 11 (08/14/22) Current [place] Sleepiness Scale score: 9 (01/14/23) Allergies and Home Medications Known drug allergies: No Drug allergies reviewed: Yes Home medication list reviewed: Yes (no changes) Allergy and home medication list: Allergies No Known Drug Allergies Allergy (Verified 01/13/23 09:27) Review of Systems Review of systems same as previous: Yes (no changes) Physical Exam Vital signs obtained and entered by: KOBY Lujan MA Blood Pressure: 150/100 (LEFT ARM) Cuff size: long Heart Rate: 79 O2 Saturation: 97 Height: 5 ft 3 in Weight: 219 lb 12.8 oz Body Mass Index: 38.9 BMI Classification: Obese Impression and Plan 1. Obstructive Sleep Apnea-Hypopnea Syndrome, mild, with good treatment compliance and good apnea control. On CPAP therapy, the patient has better sleep quality and is more rested overall. She has only had some air leak noise when she is trying to sleep on her right side, otherwise no problems. She is comfortable with current pressure being used. The patients pressure will be changed to autoCPAP 11-15 cmH20 to reflect pressure being used. Patient advised to contact me if pressure change is uncomfortable so that it can be adjusted. Goals for apnea control discussed. Patient's apnea severity and rationale for treatment to reduce apnea, improve sleep quality and reduce cardiovascular and cerebrovascular events was reviewed. I also reviewed the benefit of consistent device use of CPAP for pre-diabetes and depression. 2. Obesity, unspecified. Currently patients BMI is 38.9. Obesity increases the risk of apnea, CPAP pressure requirements and overall health risks especially cardiovascular and diabetes. Thus patient is advised to lose weight. The patient's CPAP pressure range should accommodate some weight loss. * Change auto CPAP pressure to 11-15 cmH2O * Notify me if snoring with mask or feeling that the pressure is too much or too little * Attempt to lose weight * Call this office if any problems using CPAP * Return for follow up in 1-2 months, or sooner if concerns arise Counseling Topics: Spare mask, Weight loss health impact Visit Type: In Office Time Spent with Patient (minutes): 13 Provider Statement: I spent 100% of the Face to Face Visit with the patient with greater than 50% spent counseling the patient and coordination of care.
== END 2023-01-14 14:02 | disposition home or self-care (01) ==
LOC: SC 14:01
PROVIDERS: ATTEND Nurse Practitioner Family
DX: G47.33 Obstructive sleep apnea (adult) (pediatric) (principal); E66.9 Obesity, unspecified; Z68.38 Body mass index [BMI] 38.0-38.9, adult
CPT/HCPCS: 99212; G0463

== ENCOUNTER 2023-03-23 14:39 | Outpatient (CLI) | payer MEDICARE, BC ==
--- NOTE | 2023-03-23 14:22 | SLEEP CARE CONSULTATION ---
Information from patient questionnaire entered by Koby Shen. I have reviewed and concur with the information entered by Koby Shen. This document represents the service I personally performed and the decisions made by , Tabatha Yates ARNP. History of Present Illness Service Date and Time: 03/23/2023 1420 Previous diagnosis: Mild, Obstructive Sleep Apnea-Hypopnea Syndrome AHI: 7.9 (in 2022) Reason for follow up: other (2 MONTH F/U) Equipment type: CPAP (RESMED Airsense 11, 11/2022 s/u) Equipment obtained from: [facility] ([employer] supplies) Mask style: Nasal (small cushion) Mask brand: Resmed (small wide, Airfit [id number]) Backup mask available: Yes (old mask) Last cushion change: 1-2 weeks Prior sleep studies: No Type of Sleep Study: Polysomnography (COMPLETED 10/14/22) HPI additional information: BEAU GONZALEZ was diagnosed to have mild, AHI 7.9, obstructive sleep apnea- hypopnea syndrome and returns via video telehealth visit today for CPAP therapy two month follow-up. Sleep Study - Results Type of Sleep Study: Polysomnography (COMPLETED 10/14/22) Prior sleep studies: No CPAP Compliance Data - Data Reviewed with Patient Average duration of nightly device use: 5 HRS 51 MINS Compliance rate %: 75 (01/21/23-03/21/23; 56/60 days used) Current pressure setting (cmH2O): 11-15 Average residual AHI: 1.5 Central apnea: 0.1 Obstructive apnea: 0.5 Hypopnea: 1 Average large leak: 4.6 L/min Subjective Missed days of use due to: reports: travel, other (up and down a lot at night) Patient concerns: reports: dry mouth, nose, throat (occasional, probable oral venting). denies: aerophagia, mask discomfort, air blowing in eyes, mask leak noise, condensation in mask/hose, nasal congestion, epistaxis Observed to snore while using device: No Current pressure setting perceived as: comfortable On therapy, patient: reports: sleeping better, awakening more refreshed, being more awake and alert during the day, more rested overall. denies: drowsiness while driving Initial [place] Sleepiness Scale score: 11 (08/14/22) Current [place] Sleepiness Scale score: 13 (03/23/23) Allergies and Home Medications Known drug allergies: No Drug allergies reviewed: Yes Home medication list reviewed: Yes (no changes) Allergy and home medication list: Allergies No Known Drug Allergies Allergy (Verified 03/22/23 16:40) Review of Systems Review of systems same as previous: Yes (no changes) Physical Exam Vital signs obtained and entered by: KOBY Lujan MA Height: 5 ft 3 in (PER PT) Weight: 215 lb (PER PT) Body Mass Index: 38.0 BMI Classification: Obese Impression and Plan 1. Obstructive Sleep Apnea-Hypopnea Syndrome, mild, with good treatment compliance and good apnea control. On CPAP therapy, the patient has better sleep quality and is more rested overall. Patient has significant improvement of their sleep apnea and is satisfied with current CPAP therapy. She is comfortable and getting used to using her CPAP. Patient denies problems with oral dryness, nasal congestion, epistaxis, skin irritation or aerophagia. She will follow up in 6 months or sooner if concerns arise. Patient's apnea severity and rationale for treatment to reduce apnea, improve sleep quality and reduce cardiovascular and cerebrovascular events was reviewed. I also reviewed the benefit of consistent device use of CPAP for pre-diabetes and depression. 2. Obesity, unspecified. Currently patients BMI is 38. Obesity increases the risk of apnea, CPAP pressure requirements and overall health risks especially cardiovascular and diabetes. Thus patient is advised to lose weight. * Continue auto CPAP pressure at 11-15 cmH2O * Notify me if snoring with mask or feeling that the pressure is too much or too little * Attempt to lose weight * Call this office if any problems using CPAP * Return for follow up in 6 months, or sooner if concerns arise Counseling Topics: Weight loss health impact Visit Type: Telehealth Video Video Type: [employer] Patient Location: Home Location of Provider: Office Patient agrees and consents to this telehealth visit type: Yes Patient agrees to have their insurance billed: Yes Time Spent with Patient (minutes): 12 Provider Statement: I spent 100% of the Telehealth Video Call with the patient with greater than 50% spent counseling the patient and coordination of care.
== END 2023-03-23 14:40 | disposition home or self-care (01) ==
LOC: SC 14:39
PROVIDERS: ATTEND Nurse Practitioner Family
DX: G47.33 Obstructive sleep apnea (adult) (pediatric) (principal); E66.9 Obesity, unspecified; Z68.38 Body mass index [BMI] 38.0-38.9, adult

== ENCOUNTER 2023-08-04 13:15 | Outpatient (CLI) | payer MEDICARE, BC ==
[2023-08-04 13:26] LABS: BASOPHILS # (AUTO) 0.1 10^3/uL (0.0-0.1); EOSINOPHILS # (AUTO) 0.3 10^3/uL (0.0-0.7); EOSINOPHILS % (AUTO) 2.6 %; HCT - HEMATOCRIT 42.8 % (37.0-47.0); HGB - HEMOGLOBIN 13.5 g/dL (12.0-16.0); LYMPHOCYTES # (AUTO) 3.2 10^3/uL (1.5-3.5); LYMPHOCYTES % (AUTO) 31.2 %; MEAN CORPUSCULAR HEMOGLOBIN 27.9 pg (27.0-31.0); MEAN CORPUSCULAR HGB CONC 31.5 g/dL (32.0-36.0); MEAN CORPUSCULAR VOLUME 88.4 fL (81.0-99.0); MEAN PLATELET VOLUME 9.7 fL (7.9-10.8); MONOCYTES # (AUTO) 0.8 10^3/uL (0.0-1.0); MONOCYTES % (AUTO) 7.4 %; NEUTROPHILS % (AUTO) 57.6 %; PLT - PLATELET COUNT 382 10^3/uL (130-450); RED BLOOD COUNT 4.84 10^6/uL (4.20-5.40); RED CELL DISTRIBUTION WIDTH 15.5 % (12.0-15.0); WHITE BLOOD COUNT 10.3 x10^3/uL (4.8-10.8)
[2023-08-04 13:50] LABS: ALBUMIN 4.1 g/dL (3.2-5.5); ALBUMIN/GLOBULIN RATIO 1.2 (1.0-2.2); BILIRUBIN,TOTAL 0.4 mg/dL (0.2-1.0); CALCIUM 9.7 mg/dL (8.5-10.3); CREATININE 0.7 mg/dL (0.6-1.3); TOTAL PROTEIN 7.4 g/dL (6.4-8.9)
--- NOTE | 2023-08-04 14:50 | XRAY Report ---
PROCEDURE: Chest 2 View X-Ray INDICATIONS: COUGH TECHNIQUE: 2 views of the chest were acquired. COMPARISON: Chest x-ray 07/26/2023 FINDINGS: Surgical changes and devices: None. Lungs and pleura: No pleural effusions or pneumothorax. Lungs are clear. Mediastinum: Mediastinal contours appear normal. Heart size is mildly prominent. Bones and chest wall: No suspicious bony lesions. Overlying soft tissues appear unremarkable. IMPRESSION: No acute cardiopulmonary process. Reviewed by: Agustina Kramer MD on 08/04/2023 2:49 PM PDT Approved by: Agustina Kramer MD on 08/04/2023 2:49 PM PDT Station ID: [id number]
== END 2023-08-04 13:16 | disposition home or self-care (01) ==
LOC: DI 13:15
PROVIDERS: ATTEND Physician Assistant
DX: R05.9 Cough, unspecified (principal)
CPT/HCPCS: 36415; 80053; 85025

== ENCOUNTER 2023-09-22 15:25 | Outpatient (CLI) | payer MEDICARE, BC ==
--- NOTE | 2023-09-22 15:48 | Sleep Patient Instructions ---
Sleep Center Visit Summary - Patient Visit Information Reason for Visit: 6 month followup - Patient Instructions Additional Instructions: You were here for follow up of CPAP therapy. You will be continued on CPAP therapy with pressure at 11-15 cmH2O. You should follow up with sleep care in 12 months. You may contact us sooner for any questions or concerns. - Clinic Information Contact: [facility] [address] [place] [id number] [email or web address] T: [phone]
--- NOTE | 2023-09-22 15:53 | SLEEP CARE CONSULTATION ---
Information from patient questionnaire entered by Koby Shen. I have reviewed and concur with the information entered by Koby Shen. This document represents the service I personally performed and the decisions made by , Tabatha Yates ARNP. History of Present Illness Service Date and Time: 09/22/2023 1525 Previous diagnosis: Mild, Obstructive Sleep Apnea-Hypopnea Syndrome AHI: 7.9 (in 2022) Reason for follow up: six month (F/U) Equipment type: CPAP (RESMED Airsense 11, 11/2022 s/u) Equipment obtained from: [employer] ([employer]) Mask style: Nasal (small cushion) Backup mask available: Yes Last cushion change: last night Prior sleep studies: No Type of Sleep Study: Polysomnography (COMPLETED 10/14/22) HPI additional information: BEAU GONZALEZ was diagnosed to have mild, AHI 7.9, obstructive sleep apnea- hypopnea syndrome and returned today for CPAP therapy six month follow-up. Sleep Study - Results Type of Sleep Study: Polysomnography (COMPLETED 10/14/22) Prior sleep studies: No CPAP Compliance Data - Data Reviewed with Patient Average duration of nightly device use: 6 HRS 11 MINS Compliance rate %: 81 (03/24/23-09/19/23; 175/180 days used) Current pressure setting (cmH2O): 11-15 Average residual AHI: 1.3 Central apnea: 0.1 Obstructive apnea: 0.5 Average large leak: 4.1 L/min Subjective Missed days of use due to: reports: travel (camping) Patient concerns: reports: dry mouth, nose, throat (dry mouth, may be oral venting). denies: aerophagia, mask discomfort, air blowing in eyes, mask leak noise, condensation in mask/hose, nasal congestion, epistaxis Observed to snore while using device: No Current pressure setting perceived as: comfortable On therapy, patient: reports: sleeping better, awakening more refreshed, being more awake and alert during the day, more rested overall. denies: drowsiness while driving Initial [place] Sleepiness Scale score: 11 (08/14/22) Current [place] Sleepiness Scale score: 9 (09/22/23) Allergies and Home Medications Known drug allergies: No Drug allergies reviewed: Yes Home medication list reviewed: Yes (no changes) Allergy and home medication list: Allergies No Known Drug Allergies Allergy (Verified 09/21/23 10:10) Review of Systems Review of systems same as previous: Yes (NO CHANGE) Physical Exam Vital signs obtained and entered by: KOBY Lujan MA Blood Pressure: 158/100 (RIGHT ) Cuff size: wrist Heart Rate: 99 O2 Saturation: 106 Height: 5 ft 3 in (PER PT) Weight: 218 lb 9.6 oz Body Mass Index: 38.7 BMI Classification: Obese Impression and Plan 1. Obstructive Sleep Apnea-Hypopnea Syndrome, mild, with good treatment compliance and good apnea control. On CPAP therapy, the patient has better sleep quality and is more rested overall. Patient has significant improvement of their sleep apnea and is satisfied with current CPAP therapy. She states she gets a little dry mouth but thinks she is opening her mouth when sleeping. I encouraged her to try a chinstrap or snoring strips to keep her lips together and her chin up. She voiced understanding. Patient's apnea severity and rationale for treatment to reduce apnea, improve sleep quality and reduce cardiovascular and cerebrovascular events was reviewed. I also reviewed the benefit of consistent device use of CPAP for pre-diabetes and depression. 2. Obesity, unspecified. Currently patients BMI is 38.7. Obesity increases the risk of apnea, CPAP pressure requirements and overall health risks especially cardiovascular and diabetes. Thus patient is advised to lose weight. 3. Elevated blood pressure reading. Her blood pressure was 158/100 when taken at the office today. She states her pressure is always high at doctor's offices but when she takes it at home it is in the 100s systolic. She denies chest pain, shortness of breath, dizziness or headaches today. She will continue to monitor and follow up as needed with primary care provider. * Continue auto CPAP pressure at 11-15 cmH2O * Update supply prescription * Notify me if snoring with mask or feeling that the pressure is too much or too little * Attempt to lose weight * Call this office if any problems using CPAP * Return for follow up in 12 months, or sooner if concerns arise Counseling Topics: Weight loss health impact Prescriptions: Device supplies Follow up with Sleep Care in: 1 year Visit Type: In Office Time Spent with Patient (minutes): 21 Provider Statement: I spent 100% of the Face to Face Visit with the patient with greater than 50% spent counseling the patient and coordination of care.
[2023-09-22 16:04] VITALS: BP 158/100; O2SAT 106
== END 2023-09-22 15:26 | disposition home or self-care (01) ==
LOC: SC 15:25
PROVIDERS: ATTEND Nurse Practitioner Family
DX: G47.33 Obstructive sleep apnea (adult) (pediatric) (principal); E66.9 Obesity, unspecified; Z68.38 Body mass index [BMI] 38.0-38.9, adult
CPT/HCPCS: 99213; G0463; 99212

== ENCOUNTER 2024-04-27 09:35 | Outpatient (CLI) | payer MEDICARE, BC ==
--- NOTE | 2024-04-27 16:23 | DEXA Report ---
PROCEDURE: Dexa Spine and/or Hip INDICATIONS: OSTEOPOROSIS TECHNIQUE: Dual energy x-ray absorptiometry (DXA) was performed on a [facility]. Regions measur ed are the AP Spine, femoral neck, and if needed forearm. COMPARISON: DEXA 11/18/2021 FINDINGS: Lumbar Spine: Bone Mineral Density: 0.838 g/cm/cm,T score: -2.8, unchanged. Left Femoral Neck: Bone Mineral Density: 0.810 g/cm/cm, T score: -1.6, compared to -1.5 Left Hip: Bone Mineral Density: 0.788 g/cm/cm,T score: -1.7, compared to -1.5. (T score greater or equal to -1.0: NORMAL) (T score from -1.1 to -2.4: OSTEOPENIA) (T score less than or equal to -2.5 to: OSTEOPOROSIS) Impression: By WHO criteria, this patient has osteoporosis in the lumbar spine, stable. Osteopenia is present wit hin the femoral neck and hip slightly progressive in the hip. Patients with diagnosis of osteoporosis or osteopenia should have regular bone mineral density assess ment. For those eligible for Medicare, routine testing is allowed once every 2 years. Testing frequ ency can be increased for patients who have rapidly progressing disease or for those who are receivin g medical therapy to restore bone mass. Reviewed by: Agustina Kramer MD on 04/27/2024 4:22 PM PDT Approved by: Agustina Kramer MD on 04/27/2024 4:22 PM PDT Station ID: [id number]
== END 2024-04-27 09:36 | disposition home or self-care (01) ==
LOC: DI 09:35
PROVIDERS: ATTEND Physician Assistant
DX: M81.8 Other osteoporosis without current pathological fracture (principal)